=== PATIENT | male | born 1995 | race Two or more races ===

== ENCOUNTER 2022-07-15 07:11 | Emergency (ER) | payer OTHER ==
[~2022-07-15] VITALS: Ht 182.9 cm; Wt 127.0 kg
== END 2022-07-15 15:20 | disposition home or self-care (01) ==
LOC: ER 07:11
DX: S00.03XA Contusion of scalp, initial encounter (principal); X58.XXXA Exposure to other specified factors, initial encounter; Y93.9 Activity, unspecified; Y92.9 Unspecified place or not applicable; Y99.9 Unspecified external cause status